=== PATIENT | female | born 2000 | race Caucasian/White ===

== ENCOUNTER → 2019-01-18 11:30 | Outpatient (CLI) | payer OTHER, SELFPAY | PROVIDERS: Visit Provider Physician Assistant | DX: J02.9 Acute pharyngitis, unspecified (principal) | CPT/HCPCS: 87070; 87077; 87147; 87185 ==

== ENCOUNTER 2019-04-29 17:16 | Emergency (ER) | payer OTHER, SELFPAY ==
[2019-04-29 18:04] VITALS: BP 128/83; PULSE 80; RESP 16; TEMP 36.9; O2SAT 100; BMI 29.7
[2019-04-29] MEDS: ONDANSETRON 4 MG ODT SL (19:45)
[2019-04-29] MEDS: MAG HYDROX/ALUMINUM/SIMETH SUS 20 ML, LIDOCAINE VISCOUS 2% 15 ML PO (19:47)
[2019-04-29 20:22] VITALS: BP 115/73; PULSE 83; O2SAT 99
--- NOTE | 2019-04-29 20:22 | ED.ABDPAIN ---
HPI - Abdominal Pain <LEILA VegaP - Last Filed: 04/29/19 22:55> General Chief Complaint: Abdominal Pain Stated Complaint: stomach pains Time Seen by Provider: 04/29/19 19:20 Source: patient Mode of arrival: Ambulatory Limitations: no limitations History of Present Illness HPI narrative: This is a 18-year-old female, smoker, who presents to ED with discomfort in her epigastric region with occasional radiation to esophagus and mild nausea for one week. Patient denies fever, chills, vomiting. Patient was evaluated at [facility] 3 nights ago with similar discomfort and discharged to home with diagnosis of gastritis. Patient discharged to home with Carafate but since pharmacy was closed last couple of days due to [place] she finally picked it up today and had 1 dose of this before coming into ED. patient states she was concerned since the pain recurred today. Patient reports pain is tight in characteristic worse with lying flat. Initially, patient noticed pain after taking Aleve for menstrual cramps. Patient denies urinary symptoms. Patient does not find associations with certain type of foods intake. Related Data Home Medications Medication Instructions Recorded Confirmed albuterol sulfate [ProAir HFA] 1 puff INHALATION DIRECTED 04/29/19 clindamycin-benzoyl peroxide 1 applic TOPICAL DIRECTED 04/29/19 04/29/19 fluticasone propionate [Flovent 1 inh INHALATION DIRECTED 04/29/19 04/29/19 HFA] loratadine 10 mg PO DAILY 04/29/19 04/29/19 tretinoin 1 applic TOPICAL DIRECTED 04/29/19 04/29/19 Allergies Allergy/AdvReac Type Severity Reaction Status Date / Time Sulfa (Sulfonamide Allergy Intermediate rash Verified 01/18/19 11:12 Antibiotics) Review of Systems <LEILA VegaP - Last Filed: 04/29/19 22:55> Review of Systems Narrative: General: Denies fever, chills, fatigue, malaise, sweats. HEENT: Denies sinus pain, ear pain, sore throat, difficulty swallowing, dizziness. Respiratory: Denies dyspnea, cough, wheezing, hemoptysis, sputum. Cardiovascular: Denies chest pain, palpitations, orthopnea, edema. Gastrointestinal: See HPI : Denies dysuria, frequency, incontinence, hematuria, urinary retention. Musculoskeletal: Denies weakness, joint pain or bony pain. Skin: Denies rash, skin lesions, or other. Neurologic: Denies weakness, headache, numbness, change in speech, confusion, seizures, incoordination. Psychiatric: No concerning psychosocial issues. 12-point review of systems is negative except for those stated above. Patient History <JUNE Vega - Last Filed: 04/29/19 22:55> Surgical History No pertinent past surgical history (Acute) Social History Smoking Status: Current every day smoker Smoking Status: Current every day smoker tobacco type: vaping Substance Use Type: does not use Exam <JUNE Vega - Last Filed: 04/29/19 22:55> Narrative Exam Narrative: GEN: Alert, oriented x 3, well appearing and nourished, and in no acute distress. Head: Normal cephalic, atraumatic. No scalp or temporal tenderness, palpable mass or rash. EYES: Pupils are equal, round, and reactive to light and accommodation. Extraocular muscles are intact bilaterally. There is no subconjunctival hemorrhage, exudate and sclera non-icteric. ENT: Bilateral auditory canals and tympanic membranes clear. Hearing grossly intact. Nose without bleeding, purulent discharge or deviation. Facial sinuses nontender to palpate. Mucous membrane moist, no mucosal lesion. Throat without erythema, tonsillar hypertrophy or exudate. Uvula in midline, airway patent. Neck: Trachea in midline. No JVD, non-tender without lymphadenopathy. No masses or thyroid megaly. Supple, non-tender and no meningeal signs. CARDIAC: Normal regular rate and rhythm without murmurs, gallops, or rubs. No chest wall tenderness. No peripheral edema, cyanosis or pallor. Capillary refill is less than 2 seconds. RESPIRATORY: Lungs are clear to auscultate bilaterally. No cough, wheezes, rales, or rhonchi. No stridor, respiratory distress, increase work of breathing, or accessary muscle used. ABD: Abdomen soft, mild tenderness to right upper quadrant region with palpation and non-distended. No guarding or rebound tenderness to palpate. Bowel sounds are normal in all 4 quadrants. There is no palpable masses or organomegaly. EXT: Full painless ROM of all extremities with no loss of sensation, strength, effusion or edema. SKIN: Warm, dry, normal color for patient. No erythema, lesions or rash over visible areas. BACK: Nontender without deformity or crepitance. No flank tenderness. NEUROLOGICAL: Alert and oriented to place, time and person. Sensation and motor function intact bilaterally. No facial droops, dysphasia. PSYCHIATRIC: Good judgement and reason, without hallucinations, abnormal affect or abnormal behaviors during the examination. Initial Vital Signs Initial Vital Signs: Vital Signs Temperature 98.4 F 04/29/19 18:04 Pulse Rate 80 04/29/19 18:04 Respiratory Rate 16 04/29/19 18:04 Blood Pressure 128/83 04/29/19 18:04 Pulse Oximetry 100 04/29/19 18:04 <Kavon Hinds DO - Last Filed: 04/30/19 04:18> Initial Vital Signs Initial Vital Signs: Vital Signs Temperature 98.4 F 04/29/19 18:04 Pulse Rate 80 04/29/19 18:04 Respiratory Rate 16 04/29/19 18:04 Blood Pressure 128/83 04/29/19 18:04 Pulse Oximetry 100 04/29/19 18:04 Scores <JUNE Vega - Last Filed: 04/29/19 22:55> GCS [place] coma scale eye opening: Spontaneous [place] coma scale verbal response: Orientated Priti coma scale motor response: Obey commands Priti coma scale total score: 15 Course <JUNE Vega - Last Filed: 04/29/19 22:55> Orders Ordered: Discontinued Medications Al Hydrox/Mg Hydrox/Simethicone 20 ml/ Lidocaine HCl 15 ml 0 ml PO NOW ONE Stop: 04/29/19 19:32 Last Admin: 04/29/19 19:47 Dose: 35 ml Documented by: LACY Ondansetron HCl (Zofran Odt) 4 mg SL NOW ONE Stop: 04/29/19 19:32 Last Admin: 04/29/19 19:45 Dose: 4 mg Documented by: LACY Vital Signs Vital signs: Vital Signs - 8 hr 04/29/19 20:22 Pulse Rate 83 Blood Pressure 115/73 Pulse Oximetry 99 <Kavon Hinds DO - Last Filed: 04/30/19 04:18> Orders Ordered: Discontinued Medications Al Hydrox/Mg Hydrox/Simethicone 20 ml/ Lidocaine HCl 15 ml 0 ml PO NOW ONE Stop: 04/29/19 19:32 Last Admin: 04/29/19 19:47 Dose: 35 ml Documented by: LACY Ondansetron HCl (Zofran Odt) 4 mg SL NOW ONE Stop: 04/29/19 19:32 Last Admin: 04/29/19 19:45 Dose: 4 mg Documented by: LACY Vital Signs Vital signs: Vital Signs - 8 hr 04/29/19 20:22 Pulse Rate 83 Blood Pressure 115/73 Pulse Oximetry 99 [facility] - Abdominal Pain <JUNE Vega - Last Filed: 04/29/19 22:55> Differential Diagnosis Differential diagnosis: Likely pancreatitis and other (Cholecystitis, cholelithiasis, gastritis) Medical Records Attestation: I reviewed the patient's medical records. [facility] Narrative Medical decision making narrative: This is a 18-year-old female who presents to ED with recurring right upper quadrant pain today with mild nausea for week. Patient was evaluated at [facility] 3 nights ago with similar symptoms and was discharged to home with Carafate after diagnosed with gastritis. Patient denies fever, chills, decreased appetite. Patient is afebrile and with stable vital signs. Patient was medicated with GI cocktail which patient found to be helpful for epigastric discomfort. No further imaging test her blood test has been completed today given patient's symptoms improved with GI cocktail. Patient advised to take Carafate as prescribed and advised to follow up with primary care physician if discomfort persists and to consider further imaging test including ultrasound and lab evaluation. Return precautions were discussed with patient and patient verbalized understanding and agrees with treatment plan. Discharge Plan Departure Patient Disposition: Home Clinical Impression: Gastritis Qualifiers: Gastritis type: unspecified gastritis Chronicity: acute Gastritis bleeding: presence of bleeding unspecified Qualified Code(s): K29.00 - Acute gastritis without bleeding Discharge Date/Time: 04/29/19 20:23 Instructions: DI for Gastritis Activity Restrictions/Additional Instructions: You have been diagnosed with [gastritis. GI cocktail was provided for discomfort which helped with her pain]. What to do: *Take your medications as directed. Please take Carafate as scheduled and instructed. Please follow-up with her primary care physician as scheduled. If your pain persists, he may need to follow up with her primary care doctor for imaging test such as ultrasound and further evaluation. You can take as needed Mylanta/Maalox as needed in addition for severe pain. *Follow up with your primary care provider in 2-3 days, call for an appointment. Let them know you were seen in the ED and that we asked you to be seen in follow up. *Return to ED if you have any new, worsening, or concerning symptoms, such as [chest pain, breathing difficulty, unable to tolerate fluids, or any acute concerns.]. Prescriptions: No Action clindamycin-benzoyl peroxide 1-5 % gel 1 applic TOPICAL DIRECTED RF: 0 loratadine 10 mg tablet 10 mg PO DAILY RF: 0 Flovent HFA 110 mcg/actuation HFA aerosol inhaler 1 inh INHALATION DIRECTED RF: 0 tretinoin 0.025 % cream 1 applic TOPICAL DIRECTED RF: 0 albuterol sulfate [ProAir HFA] 90 mcg/actuation HFA aerosol inhaler 1 puff inhalation DIRECTED RF: 0 Referrals: Mike Luong, TITLE I DIRECTOR [Non-Staff] -
== END 2019-04-29 20:23 | disposition home or self-care (01) ==
PROVIDERS: Emergency Provider Nurse Practitioner Family
DX: K29.00 Acute gastritis without bleeding (principal)
CPT/HCPCS: 99281; 99283